=== PATIENT | female | born 1975 | race Caucasian/White ===

== ENCOUNTER → 2018-11-04 16:27 | Outpatient (CLI) | payer BC, SELFPAY ==
--- NOTE | 2018-11-04 | DI.MG.S_ITS ---
BILATERAL DIGITAL SCREENING MAMMOGRAM 3D/2D WITH CAD: 11/04/2018 CLINICAL: Routine screening. Comparison is made to exams dated: 07/20/2014 mammogram, 07/14/2014 mammogram, and 03/10/2013 mammogram - [facility]. The tissue of both breasts is heterogeneously dense. This may lower the sensitivity of mammography. Current study was also evaluated with a Computer Aided Detection (CAD) system. No significant masses, calcifications, or other findings are seen in either breast. There has been no significant interval change. IMPRESSION: NEGATIVE There is no mammographic evidence of malignancy. A 1 year screening mammogram is recommended. This exam was interpreted at Station ID: [id number]. NOTE: For mammograms, a report in lay terms will be sent to the patient. Approximately 15% of breast malignancies will not be visualized mammographically. In the management of a palpable breast mass, a negative mammogram must not discourage biopsy of a clinically suspicious lesion. Electronically Signed By: Yury hu/everton:11/04/2018 17:01:33 letter sent: Normal Exam ACR BI-RADS Category 1: Negative [id number]
== END ==
PROVIDERS: Family Provider Family Medicine; PCP Family Medicine; Visit Provider Family Medicine
DX: Z12.31 Encounter for screening mammogram for malignant neoplasm of breast (principal)
CPT/HCPCS: 77063; 77067

== ENCOUNTER → 2022-08-20 12:46 | Outpatient (CLI) | payer OTHER, SELFPAY ==
--- NOTE | 2022-08-20 | DI.MG.S_ITS ---
BILATERAL DIGITAL SCREENING MAMMOGRAM 3D/2D WITH CAD: 08/20/2022 CLINICAL: Routine screening. Comparison is made to exams dated: 11/04/2018 mammogram, 07/14/2014 mammogram, and 03/10/2013 mammogram - [facility]. Both breasts are heterogeneously dense, which may obscure small masses (category c / 51-75% glandular tissue). Current study was also evaluated with a Computer Aided Detection (CAD) system. No significant masses, calcifications, or other findings are seen in either breast. There has been no significant interval change. IMPRESSION: NEGATIVE There is no mammographic evidence of malignancy. A 1 year screening mammogram is recommended. Based on the Tyrer Cuzick model (a risk assessment model) the patient's lifetime risk is 13.7% and her 10 year risk is 2.7%. According to the ACR, ACS, and NCCN guidelines, an annual breast MRI exam along with mammogram is recommended if the patient's lifetime risk is 20% or greater. This exam was interpreted at Station ID: [id number]. NOTE: For mammograms, a report in lay terms will be sent to the patient. Approximately 15% of breast malignancies will not be visualized mammographically. In the management of a palpable breast mass, a negative mammogram must not discourage biopsy of a clinically suspicious lesion. Electronically Signed By: Crow coleman/everton:08/20/2022 13:38:06 letter sent: Normal Exam ACR BI-RADS Category 1: Negative [id number]
== END ==
PROVIDERS: Family Provider Family Medicine; PCP Family Medicine; Referring Provider Family Medicine; Visit Provider Family Medicine
DX: Z12.31 Encounter for screening mammogram for malignant neoplasm of breast (principal)
CPT/HCPCS: 77063; 77067

== ENCOUNTER → 2023-11-24 15:06 | Outpatient (CLI) | payer OTHER, SELFPAY ==
--- NOTE | 2023-11-24 | DI.MRI.S_ITS ---
PROCEDURE: MR CERVICAL SPINE WO CON INDICATIONS: Cervicalgia TECHNIQUE: Noncontrast sagittal T1 spin echo and T2 fast spin echo, sagittal STIR, foraminal oblique sagittal T2 fast spin echo, and axial gradient echo or T2 fast spin echo through the cervical spine. COMPARISON: None. FINDINGS: Image quality: Excellent. Alignment and Curvature: There is normal bony alignment. Bone Marrow: Marrow demonstrates normal overall signal. Spinal Cord: There is a very short distance minimal diameter cord syrinx at C6-C7. The cervical cord is of otherwise normal caliber, contour, and signal characteristics. No cerebellar tonsillar herniation. Paraspinous Soft Tissues: No paravertebral masses. Prevertebral soft tissues are normal in thickness. C2-C3: Left facet hypertrophy. No canal stenosis or foraminal stenosis. C3-C4: Left facet hypertrophy. No canal stenosis or foraminal stenosis. C4-C5: Left facet hypertrophy. No canal stenosis or foraminal stenosis. C5-C6: Minimal disc bulge. Left facet hypertrophy. No canal stenosis or foraminal stenosis. C6-C7: Mild disc bulge. Central cord syrinx, small. Bilateral facet hypertrophy. No canal stenosis or foraminal stenosis. C7-T1: Bilateral facet hypertrophy, left greater than right. No canal stenosis. [id number] left foraminal narrowing. IMPRESSION: 1. Multilevel left facet arthropathy, lower cervical right facet arthropathy. 2. No canal stenosis or significant foraminal stenosis. 3. Very short distance small central cord syrinx at C6-C7. Dictated by: Germán Mejia M.D. on 11/24/2023 at 19:24 Approved by: Germán Mejia M.D. on 11/24/2023 at 19:29
== END ==
PROVIDERS: Family Provider Family Medicine; PCP Family Medicine; Referring Provider Family Medicine; Visit Provider Family Medicine
DX: M47.812 Spondylosis without myelopathy or radiculopathy, cervical region (principal); G95.0 Syringomyelia and syringobulbia; M54.2 Cervicalgia; G89.29 Other chronic pain
CPT/HCPCS: 72141

== ENCOUNTER → 2024-03-25 07:41 | Outpatient (CLI) | payer OTHER, SELFPAY ==
--- NOTE | 2024-03-25 07:43 | DI.US.S_ITS ---
PROCEDURE: US ABDOMEN LIMITED INDICATIONS: TRAUMA TO ABDOMEN, MASS TECHNIQUE: Real-time scanning was performed at the area of interest in the right flank region, with image documentation. COMPARISON: None. FINDINGS: There is a 1.4 x 2.4 x 0.6 cm heterogeneous linear focus at the right flank. No internal vascularity or peripheral vascularity. IMPRESSION: There is a heterogeneous linear focus at the right flank measuring up to 2.4 cm which is felt to correspond to a hematoma. A repeat scan can be performed in 2-3 months to ensure resolution. Dictated by: Andrea To M.D. on 03/26/2024 at 9:45 Approved by: Andrea To M.D. on 03/26/2024 at 9:49
== END ==
LOC: US 07:42
PROVIDERS: Family Provider Family Medicine; PCP Family Medicine; Referring Provider Internal Medicine; Visit Provider Internal Medicine
DX: R19.01 Right upper quadrant abdominal swelling, mass and lump (principal)
CPT/HCPCS: 76705

== ENCOUNTER → 2024-05-18 13:47 | Outpatient (CLI) | payer OTHER, SELFPAY ==
--- NOTE | 2024-05-18 13:48 | DI.US.S_ITS ---
PROCEDURE: US ABDOMEN LIMITED INDICATIONS: F/U HEMATOMA RT FLANK TECHNIQUE: Soft tissue ultrasound COMPARISON: [facility], US, US ABDOMEN LIMITED, 03/25/2024, 8:20. FINDINGS: Right flank soft tissue ultrasound shows a heterogenous soft tissue hematoma measuring 0.9 x 0.5 x 1.6 cm, previously 1.4 x 0.6 x 2.4 cm. IMPRESSION: Resolving soft tissue hematoma Approved by: Ventura Mello M.D. on 05/18/2024 at 17:43
== END ==
PROVIDERS: Family Provider Family Medicine; PCP Family Medicine; Referring Provider Family Medicine; Visit Provider Family Medicine
DX: R93.5 Abnormal findings on diagnostic imaging of other abdominal regions, including retroperitoneum (principal); S30.1XXA Contusion of abdominal wall, initial encounter; X58.XXXA Exposure to other specified factors, initial encounter
CPT/HCPCS: 76705

== ENCOUNTER → 2024-08-05 09:12 | Outpatient (CLI) | payer OTHER, SELFPAY ==
--- NOTE | 2024-08-05 | DI.MG.S_ITS ---
BILATERAL DIGITAL SCREENING MAMMOGRAM 3D/2D WITH CAD: 08/05/2024 CLINICAL: Routine screening. Comparison is made to exams dated: 08/20/2022 mammogram, 11/04/2018 mammogram, and 07/14/2014 mammogram - [facility]. There are scattered areas of fibroglandular density (category b / 25%-50% glandular tissue). Current study was also evaluated with a Computer Aided Detection (CAD) system. No significant masses, calcifications, or other findings are seen in either breast. There has been no significant interval change. IMPRESSION: NEGATIVE There is no mammographic evidence of malignancy. A 1 year screening mammogram is recommended. Based on the Tyrer Cuzick model (a risk assessment model) the patient's lifetime risk is 9.1% and her 10 year risk is 1.9%. According to the ACR, ACS, and NCCN guidelines, an annual breast MRI exam along with mammogram is recommended if the patient's lifetime risk is 20% or greater. This exam was interpreted at Station ID: [id number]. NOTE: For mammograms, a report in lay terms will be sent to the patient. Approximately 15% of breast malignancies will not be visualized mammographically. In the management of a palpable breast mass, a negative mammogram must not discourage biopsy of a clinically suspicious lesion. Electronically Signed By: Christy [email or web address]/everton:08/05/2024 15:48:46 letter sent: Normal Exam ACR BI-RADS Category 1: Negative
== END ==
PROVIDERS: Family Provider Family Medicine; PCP Family Medicine; Referring Provider Family Medicine; Visit Provider Family Medicine
DX: Z12.31 Encounter for screening mammogram for malignant neoplasm of breast (principal)
CPT/HCPCS: 77063; 77067

== ENCOUNTER → 2025-06-21 09:07 | Outpatient (CLI) | payer OTHER, SELFPAY ==
[2025-06-21 10:18] LABS: Add Manual Diff / Slide Review NO; Hematocrit 38.0 % (36-46); Hemoglobin 12.8 g/dL (12.0-16.0); Lymphocytes Absolute Auto 1400 /uL (1100-4500); Mean Corpuscular HGB Conc 33.7 % (30-36); Mean Corpuscular Hemoglobin 29.7 PG (26-34); Mean Corpuscular Volume 88.0 fL (80-100); Platelet Count 330 X10^3/uL (150-400)
[2025-06-21 10:47] LABS: Alanine Aminotransferase 18 IU/L (<35); Albumin 4.9 g/dL (3.5-5.0); Albumin Globulin Ratio 1.5 (1.0-2.8); Alkaline Phosphatase 64 U/L (38-126); Blood Urea Nitrogen 9 mg/dL (7-17); Calcium 9.5 mg/dL (8.4-10.2); Carbon Dioxide 25 mmol/L (22-32); Chloride 102 mmol/L (98-107); Cholesterol 226 mg/dL (140-199); Estimated Glomerular Filt Rate > 60 mL/min (>60); Globulin 3.2 g/dL (1.7-4.1); Glucose 94 mg/dL (70-99); HDL Cholesterol 79 mg/dL (40-60); HEMOLYSIS < 15 (0-50); Potassium 4.7 mmol/L (3.4-5.1); Sodium 136 mmol/L (137-145); Total Protein 8.1 g/dL (6.3-8.2); Triglycerides 95 mg/dL (35-150)
[2025-06-21 11:00] LABS: Free T4, Direct Thyroxine 1.04 ng/dL (0.78-2.19)
[2025-06-21 11:14] LABS: Thyroid Stimulating Hormone 1.19 uIU/mL (0.47-4.68)
== END ==
PROVIDERS: Family Provider Family Medicine; PCP Family Medicine; Referring Provider Family Medicine; Visit Provider Family Medicine
DX: Z00.00 Encounter for general adult medical examination without abnormal findings (principal); Z13.29 Encounter for screening for other suspected endocrine disorder
CPT/HCPCS: 36415; 80053; 80061; 84439; 84443; 85025